=== PATIENT | female | born 1985 | race Caucasian/White ===

== ENCOUNTER 2016-08-07 06:30 | Emergency (ER) | payer OTHER ==
[~2016-08-07 06:30] MED LIST: CLONAZEPAM0.5 MG PO; DEPO-MEDROL40 MG/ML IM; IBUPROFEN400 MG PO; LATUDA120 MG PO; PRAZOSIN HCL2 MG PO; VALTREX1 GM PO; VENLAFAXINE HC100 MG PO
--- NOTE | 2016-08-07 08:41 | ED NURSING NOTES ---
Clinical Report - Nurses [facility] [address] [place] [address] 08/07/2016 6:31 Patient: CONSTANTINE ORDOÑEZ TRIAGE Triage time 07:13. Acuity: LEVEL 4. Chief Complaint: SORE THROAT and (Reports throat pain x 2 days. 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 Alert. No acute distress. SEPSIS SCREEN: Sepsis Screen: negative. Infection suspected/documented. --07:21 Kam Walden R.N. 07:12 08/07/16. BP: 113/62 (large adult cuff) taken on the left arm, via an automated monitor, while sitting. HR: 78 (normal rate). RR: 16 (regular, unlabored and normal). O2 saturation: 100% on room air. Temp: 97.8 F (oral). Pain level now: 12/16. --07:21 Kam Walden R.N. Weight: 115.6 kg stated. Height/Length: 63 inches Per Patient. BMI: 45.2. --07:14 Kam Walden R.N. Medications Latuda Oral (Tablet 120 mg) 1 tablet, q day. --07:14 Kam Walden R.N. PROzac Oral. --07:14 Kam Walden R.N. Minipress Oral. --07:14 Kam Walden R.N. Gabapentin Oral. --07:14 Kma Walden R.N. Depo-Provera Intramuscular. --07:16 Kam Walden R.N. Medication/allergy information source: the patient. --07:21 Kam Walden R.N. Allergies Sulfa Antibiotics. --07:14 Kam Walden R.N. History Arrived by private vehicle. Historian: patient. Unaccompanied. Primary physician (Dr. Munoz). Onset. (about 2 days ago). She has had a green nasal discharge, a sore throat, left ear pain and chills. No sinus pain. 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 Symptoms did not improve after treatment. (Throat lozanges). PAST MEDICAL HX: Last normal menstrual period- No period. Uses depo implants. Has not received seasonal influenza immunization. SOCIAL HX: Never smoker. No alcohol use or drug use. She has not traveled outside the [place] The patient was not exposed to MRSA. ABUSE ASSESSMENT: Abuse assessment: The patient was asked "Do you feel safe in your home?" and "Has anyone hurt you or threatened to hurt you?". No report of abuse. SELF HARM ASSESSMENT: A self harm assessment was performed. The patient answered "no" to the question "Do you have thoughts of harming or killing yourself?" and "Have you recently had thoughts about harming or killing others?". FALL RISK ASSESSMENT: Fall risk assessment completed. No fall risk identified. NUTRITIONAL RISK ASSESSMENT: The nutritional risk assessment revealed no deficiencies. LEARNING NEEDS ASSESSMENT: The learning needs assessment revealed no barriers. FUNCTIONAL ASSESSMENT: Functional assessment performed: wears glasses- this visual impairment is an ongoing problem. SKIN INTEGRITY ASSESSMENT: Skin integrity risk assessment completed. No skin integrity risk identified. --07: Kam Walden R.N. PROBLEMS: Hives. Anxiety. Otitis Media. Depression. Chronic Back Pain. PTSD. Cerebral Palsy. --07:15 Kam Walden R.N. ADDITIONAL SURGERIES: Dilatation & Curettage. Ileostomy. --07:15 Kam Walden R.N. Assessment GENERAL / NEURO / PSYCH: Alert. Oriented X 4. Appears in no acute distress. [place] Coma Scale: 15- eyes open spontaneously (4); best verbal response- oriented x 4 (5); best motor response- obeys commands (6). Patient appears calm and cooperative. RESPIRATORY: Respirations not labored. SKIN: Skin is warm and dry. --07:21 Kam Walden R.NLesia Interventions ID band on patient. Patient ID band checked for patient name and birthdate: patient confirmed. Throat swab obtained for rapid strep and culture; labeled in the presence of the patient and sent to lab. To waiting room. --07:21 Kam Walden R.N. DISPOSITION / DISCHARGE Departure time: 904Aug 07 2016. Condition at departure: improved and stable. No learning barriers present. Discharge instructions provided and reviewed with the patient. Reviewed medication(s) side effects, precautions and dosing information. Prescription(s) given to the patient. Patient verbalized understanding. Written instructions provided in Greek. The patient was discharged by the physician. She was discharged home. She left the Emergency Department ambulatory and via private vehicle. --18:08 Maggie Vasquez R.N. 18:05 08/07/16. BP: 105/55. HR: 82. RR: 18. O2 saturation: 99% on room air. Temp: 98.6 F. Pain level now: 10/16. --18:08 Maggie Vasquez R.N. Locked/Released at 08/07/2016 18:09 by Maggie Vasquez R.N.
--- NOTE | 2016-08-07 08:41 | ED CLINICAL REPORT ---
Clinical Report - Physicians/Mid Levels [facility] [address] [place] [place] [address] 08/07/2016 6:31 Patient: CONSTANTINE ORDOÑEZ Time Seen: 08:26; initial patient contact. Arrived- By private vehicle. Historian- patient. HISTORY OF PRESENT ILLNESS Chief Complaint: SORE THROAT. This started about 2 days ago and is still present and worsening. It was gradual in onset. Pain described as moderate. The patient has had a sore throat, nasal congestion, a nasal discharge and ear pain. No toothache, swollen jaw or face, jaw pain or facial pain. Similar symptoms previously: None. Recent medical care: Not recently seen/assessed. REVIEW OF SYSTEMS No fever, cough, difficulty breathing or enlarged lymph nodes. All systems otherwise negative, except as recorded above. PAST HISTORY Hives. Anxiety. Otitis Media. Depression. Chronic Back Pain. PTSD. Cerebral Palsy. ADDITIONAL SURGERIES: Dilatation & Curettage. Ileostomy. Medications: Depo-Provera Intramuscular. Gabapentin Oral. Minipress Oral. PROzac Oral. Latuda Oral (Tablet 120 mg) 1 tablet, q day. Allergies: Sulfa Antibiotics. SOCIAL HISTORY Never smoker. No alcohol use or drug use. ADDITIONAL NOTES The nursing notes have been reviewed with agreement regarding the chief complaint, PMH and patient medications and allergies. PHYSICAL EXAM Vital Signs: 08/07/2016 07:12 BP: 113/62. HR: 78. RR: 16. O2 saturation: 100%. Temp: 97.8 F. Pain level now: 6/10. Have been reviewed as normal. Appearance: Alert. No acute distress. Head: Normal external inspection. Eyes: Conjunctivae and eyelids normal. ENT: Abnormal ear exam. Left Ear: there is TM dullness present, a diffuse TM light reflex, bulging of the TM, loss of landmarks and moderate TM erythema. Moderate generalized pharyngeal erythema with right tonsillar swelling and left tonsillar swelling. No trismus present. Neck: No lymphadenopathy. CVS: Normal heart rate and rhythm. Heart sounds normal. Respiratory: No respiratory distress. Breath sounds normal. Skin: Normal skin color. No rash. Neuro: Oriented X 3. LABS, X-RAYS, AND EKG Laboratory Tests: Culture, Strep Screen: (ISAI: 08/07/2016 07:20) ( MsgRcvd 08/07/2016 07:35) Final results Test Result Flag Units (Reference) RAPID STREP SCREEN - THROAT DATE: 08/07/16 NEGATIVE SCREEN: RAPID STREP SCREEN NEGATIVE; CONFIRMATION TO FOLLOW . PROGRESS AND PROCEDURES Disposition: Discharged home in good condition. Condition: good. CLINICAL IMPRESSION Acute serous left otitis media. INSTRUCTIONS Do not work today. Your Current Medications: CONTINUE TAKING THE FOLLOWING MEDICATIONS: Depo-Provera Intramuscular. Gabapentin Oral. Latuda Oral : Tablet 120 mg, 1 tablet q day. Minipress Oral. PROzac Oral. Prescription Medications: Amoxicillin 500 mg capsules: take 1 orally every 8 hours for 7 days Flonase nasal spray: 2 sprays to each nostril daily. Dispense one (1) unit. No refills. Substitution is permissible Follow-up: Follow up with your doctor if not better. Call for an appointment. Screening today revealed the patient's blood pressure to be in the normal range. (Electronically signed by Brandon Coker Dr. 08/07/2016 10:57)
--- NOTE | 2016-08-07 08:41 | ED ORDER SUMMARY ---
..... Patient: CONSTANTINE ORDOÑEZ OrderSheet [facility] VisitID: [id number] [address] [place] [address] 30y, F Registration Date/Time: 08/07/2016 ORDER SHEET Weight: 115.6 kg (stated) Allergies: Sulfa Antibiotics GENERAL ORDERS: Culture, Strep Screen Urgent (07:22 08/07/2016 Sean Yang verbal order read back to [facility]) (7:28 [facility]) MEDICATION ORDERS: IV FLUIDS: ORDER SHEET NOTES: [Electronically signed by Brandon Coker Dr. (10:57 08/07/2016)] [Electronically signed by Maggie Vasquez R.N. (18:09 08/07/2016)] [Electronically locked/signed by Maggie Vasquez R.N. (18:09 08/07/2016)]
--- NOTE | 2016-08-07 08:41 | ED ORDER SUMMARY ---
..... Patient: CONSTANTINE ORDOÑEZ OrderSheet [facility] VisitID: [id number] [address] [place] [address] 30y, F Registration Date/Time: 08/07/2016 ORDER SHEET Weight: 115.6 kg (stated) Allergies: Sulfa Antibiotics GENERAL ORDERS: Culture, Strep Screen Urgent (07:22 08/07/2016 Sean Yang verbal order read back to [facility] Davila) (7:28 [facility]) MEDICATION ORDERS: IV FLUIDS: ORDER SHEET NOTES: [Electronically signed by Brandon Coker Dr. (10:57 08/07/2016)] [Electronically signed by Maggie Vasquez R.N. (18:09 08/07/2016)] [Electronically locked/signed by Maggie Vasquez R.N. (18:09 08/07/2016)]
--- NOTE | 2016-08-07 08:41 | ED CLINICAL REPORT ---
Clinical Report - Physicians/Mid Levels [facility] [address] [place] [address] 08/07/2016 6:31 Patient: CONSTANTINE ORDOÑEZ Time Seen: 08:26; initial patient contact. Arrived- By private vehicle. Historian- patient. HISTORY OF PRESENT ILLNESS Chief Complaint: SORE THROAT. This started about 2 days ago and is still present and worsening. It was gradual in onset. Pain described as moderate. The patient has had a sore throat, nasal congestion, a nasal discharge and ear pain. No toothache, swollen jaw or face, jaw pain or facial pain. Similar symptoms previously: None. Recent medical care: Not recently seen/assessed. REVIEW OF SYSTEMS No fever, cough, difficulty breathing or enlarged lymph nodes. All systems otherwise negative, except as recorded above. PAST HISTORY Hives. Anxiety. Otitis Media. Depression. Chronic Back Pain. PTSD. Cerebral Palsy. ADDITIONAL SURGERIES: Dilatation & Curettage. Ileostomy. Medications: Depo-Provera Intramuscular. Gabapentin Oral. Minipress Oral. PROzac Oral. Latuda Oral (Tablet 120 mg) 1 tablet, q day. Allergies: Sulfa Antibiotics. SOCIAL HISTORY Never smoker. No alcohol use or drug use. ADDITIONAL NOTES The nursing notes have been reviewed with agreement regarding the chief complaint, PMH and patient medications and allergies. PHYSICAL EXAM Vital Signs: 08/07/2016 07:12 BP: 113/62. HR: 78. RR: 16. O2 saturation: 100%. Temp: 97.8 F. Pain level now: 6/10. Have been reviewed as normal. Appearance: Alert. No acute distress. Head: Normal external inspection. Eyes: Conjunctivae and eyelids normal. ENT: Abnormal ear exam. Left Ear: there is TM dullness present, a diffuse TM light reflex, bulging of the TM, loss of landmarks and moderate TM erythema. Moderate generalized pharyngeal erythema with right tonsillar swelling and left tonsillar swelling. No trismus present. Neck: No lymphadenopathy. CVS: Normal heart rate and rhythm. Heart sounds normal. Respiratory: No respiratory distress. Breath sounds normal. Skin: Normal skin color. No rash. Neuro: Oriented X 3. LABS, X-RAYS, AND EKG Laboratory Tests: Culture, Strep Screen: (ISAI: 08/07/2016 07:20) ( MsgRcvd 08/07/2016 07:35) Final results Test Result Flag Units (Reference) RAPID STREP SCREEN - THROAT DATE: 08/07/16 NEGATIVE SCREEN: RAPID STREP SCREEN NEGATIVE; CONFIRMATION TO FOLLOW . PROGRESS AND PROCEDURES Disposition: Discharged home in good condition. Condition: good. CLINICAL IMPRESSION Acute serous left otitis media. INSTRUCTIONS Do not work today. Your Current Medications: CONTINUE TAKING THE FOLLOWING MEDICATIONS: Depo-Provera Intramuscular. Gabapentin Oral. Latuda Oral : Tablet 120 mg, 1 tablet q day. Minipress Oral. PROzac Oral. Prescription Medications: Amoxicillin 500 mg capsules: take 1 orally every 8 hours for 7 days Flonase nasal spray: 2 sprays to each nostril daily. Dispense one (1) unit. No refills. Substitution is permissible Follow-up: Follow up with your doctor if not better. Call for an appointment. Screening today revealed the patient's blood pressure to be in the normal range. (Electronically signed by Brandon Coker Dr. 08/07/2016 10:57)
--- NOTE | 2016-08-07 08:41 | ED NURSING NOTES ---
Clinical Report - Nurses [facility] [address] [place] [address] 08/07/2016 6:31 Patient: CONSTANTINE ORDOÑEZ TRIAGE Triage time 07:13. Acuity: LEVEL 4. Chief Complaint: SORE THROAT and (Reports throat pain x 2 days. 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 Alert. No acute distress. SEPSIS SCREEN: Sepsis Screen: negative. Infection suspected/documented. --07:21 Kam Walden R.N. 07:12 08/07/16. BP: 113/62 (large adult cuff) taken on the left arm, via an automated monitor, while sitting. HR: 78 (normal rate). RR: 16 (regular, unlabored and normal). O2 saturation: 100% on room air. Temp: 97.8 F (oral). Pain level now: 12/16. --07:21 Kam Walden R.N. Weight: 115.6 kg stated. Height/Length: 63 inches Per Patient. BMI: 45.2. --07:14 Kam Walden R.N. Medications Latuda Oral (Tablet 120 mg) 1 tablet, q day. --07:14 Kam Walden R.N. PROzac Oral. --07:14 Kam Walden R.N. Minipress Oral. --07:14 Kam Walden R.N. Gabapentin Oral. --07:14 Kam Walden R.N. Depo-Provera Intramuscular. --07:16 Kam Walden R.N. Medication/allergy information source: the patient. --07:21 Kam Walden R.N. Allergies Sulfa Antibiotics. --07:14 Kam Walden R.N. History Arrived by private vehicle. Historian: patient. Unaccompanied. Primary physician (Dr. Munoz). Onset. (about 2 days ago). She has had a green nasal discharge, a sore throat, left ear pain and chills. No sinus pain. 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 Symptoms did not improve after treatment. (Throat lozanges). PAST MEDICAL HX: Last normal menstrual period- No period. Uses depo implants. Has not received seasonal influenza immunization. SOCIAL HX: Never smoker. No alcohol use or drug use. She has not traveled outside the [place] The patient was not exposed to MRSA. ABUSE ASSESSMENT: Abuse assessment: The patient was asked "Do you feel safe in your home?" and "Has anyone hurt you or threatened to hurt you?". No report of abuse. SELF HARM ASSESSMENT: A self harm assessment was performed. The patient answered "no" to the question "Do you have thoughts of harming or killing yourself?" and "Have you recently had thoughts about harming or killing others?". FALL RISK ASSESSMENT: Fall risk assessment completed. No fall risk identified. NUTRITIONAL RISK ASSESSMENT: The nutritional risk assessment revealed no deficiencies. LEARNING NEEDS ASSESSMENT: The learning needs assessment revealed no barriers. FUNCTIONAL ASSESSMENT: Functional assessment performed: wears glasses- this visual impairment is an ongoing problem. SKIN INTEGRITY ASSESSMENT: Skin integrity risk assessment completed. No skin integrity risk identified. --07: Kam Walden R.N. PROBLEMS: Hives. Anxiety. Otitis Media. Depression. Chronic Back Pain. PTSD. Cerebral Palsy. --07:15 Kam Walden R.N. ADDITIONAL SURGERIES: Dilatation & Curettage. Ileostomy. --07:15 Kam Walden R.N. Assessment GENERAL / NEURO / PSYCH: Alert. Oriented X 4. Appears in no acute distress. [place] Coma Scale: 15- eyes open spontaneously (4); best verbal response- oriented x 4 (5); best motor response- obeys commands (6). Patient appears calm and cooperative. RESPIRATORY: Respirations not labored. SKIN: Skin is warm and dry. --07:21 Kam Walden R.NLesia Interventions ID band on patient. Patient ID band checked for patient name and birthdate: patient confirmed. Throat swab obtained for rapid strep and culture; labeled in the presence of the patient and sent to lab. To waiting room. --07:21 Kam Walden R.N. DISPOSITION / DISCHARGE Departure time: 904Aug 07 2016. Condition at departure: improved and stable. No learning barriers present. Discharge instructions provided and reviewed with the patient. Reviewed medication(s) side effects, precautions and dosing information. Prescription(s) given to the patient. Patient verbalized understanding. Written instructions provided in [place]. The patient was discharged by the physician. She was discharged home. She left the Emergency Department ambulatory and via private vehicle. --18:08 Maggie Vasquez R.N. 18:05 08/07/16. BP: 105/55. HR: 82. RR: 18. O2 saturation: 99% on room air. Temp: 98.6 F. Pain level now: 10/16. --18:08 Maggie Vasquez R.N. Locked/Released at 08/07/2016 18:09 by Maggie Vasquez R.N.
--- NOTE | 2016-08-07 18:09 | ED MED RECONCILIATION SUMMARY ---
Patient: CONSTANTINE ORDOÑEZ Medication Reconciliation Report [facility] VisitID: [id number] [address] [place] [address] 30y, F Registration Date/Time: 08/07/2016 Weight: 115.6 kg Height/Length: 63 in. BMI: 45.2 ALLERGIES: Sulfa Antibiotics The patient's Home Medications are listed below: CONTINUE TAKING THE FOLLOWING MEDICATIONS: Depo-Provera Intramuscular Gabapentin Oral Latuda Oral (120 mg) 1 tablet, q day Minipress Oral PROzac Oral The source(s) of the original Home Medication information: patient The following Medications were given to the patient in the Emergency Department: None. The following Medications were prescribed to the patient: Amoxicillin 500 mg capsules: take 1 orally every 8 hours for 7 days -- Brandon Coker Dr. Fl[place]reea nasal spray: 2 sprays to each nostril daily. Dispense one (1) unit. No refills. Substitution is permissible -- Brandon Coker Dr.
--- NOTE | 2016-08-07 18:09 | ED MAR SUMMARY ---
..... Medication Administration Record [facility] [address] [place], [place] [id number] Patient: CONSTANTINE ORDOÑEZ Visit ID: [id number] 30y, F Weight: 115.6 kg Height/Length: 63 in BMI: 45.2 ALLERGIES: Sulfa Antibiotics
--- NOTE | 2016-08-07 18:09 | ED DISCHARGE INSTRUCTIONS ---
Patient: CONSTANTINE ORDOÑEZ General Instructions [facility] VisitID: [id number] [place] [address] 30y, F Registration Date/Time: 08/07/2016 Acute serous left otitis media. INSTRUCTIONS Do not work today. Your Current Medications: CONTINUE TAKING THE FOLLOWING MEDICATIONS: Depo-Provera Intramuscular. Gabapentin Oral. Latuda Oral : Tablet 120 mg, 1 tablet q day. Minipress Oral. PROzac Oral. Prescription Medications: Amoxicillin 500 mg capsules: take 1 orally every 8 hours for 7 days Flonase nasal spray: 2 sprays to each nostril daily. Dispense one (1) unit. No refills. Substitution is permissible Follow-up: Follow up with your doctor if not better. Call for an appointment. Screening today revealed the patient's blood pressure to be in the normal range. ADDITIONAL INFORMATION Middle Ear Infection (Adult) You have an infection of the middle ear (the space behind the eardrum). It can occur as a result of the common cold. This is because congestion can block the internal passage (eustachian tube) that drains fluid from the middle ear. When the middle ear fills with fluid, bacteria can grow there and cause an infection. Oral antibiotics are used to treat this illness, not ear drops. Symptoms usually start to improve within 1-2 days of treatment. Home Care: Finish all of the antibiotic medicine prescribed, even though you may feel better after the first few days. You may use acetaminophen (Tylenol) or ibuprofen (Motrin, Advil) to control pain, unless something else was prescribed. [NOTE: If you have chronic liver or kidney disease or have ever had a stomach ulcer or GI bleeding, talk with your doctor before using these medicines.] (Do not give aspirin to anyone under 18 years of age who is ill with a fever. It may cause severe liver damage.) Follow Up with your doctor or this facility in two weeks if all symptoms have not cleared, or if hearing does not return to normal within one month. Get Prompt Medical Attention if any of the following occur: Ear pain gets worse or does not improve after three days of treatment Unusual drowsiness or confusion Neck pain, stiff neck or headache Fluid or blood draining from the ear canal Fever of 100.4F (38C) or higher after 3 days of antibiotics, or as directed by your healthcare provider Convulsion (seizure) Amoxicillin Trihydrate Oral tablet What is this medicine? AMOXICILLIN (a mox i VERNON in) is a penicillin antibiotic. It is used to treat certain kinds of bacterial infections. It will not work for colds, flu, or other viral infections. How should I use this medicine? Take this medicine by mouth with a glass of water. Follow the directions on your prescription label. You may take this medicine with food or on an empty stomach. Take your medicine at regular intervals. Do not take your medicine more often than directed. Take all of your medicine as directed even if you think your are better. Do not skip doses or stop your medicine early. Talk to your financial brokers regarding the use of this medicine in children. While this drug may be prescribed for selected conditions, precautions do apply. What side effects may I notice from receiving this medicine? Side effects that you should report to your doctor or health child care centre manager as soon as possible: allergic reactions like skin rash, itching or hives, swelling of the face, lips, or tongue breathing problems dark urine redness, blistering, peeling or loosening of the skin, including inside the mouth seizures severe or watery diarrhea trouble passing urine or change in the amount of urine unusual bleeding or bruising unusually weak or tired yellowing of the eyes or skin Side effects that usually do not require medical attention (report to your doctor or health child care centre manager if they continue or are bothersome): dizziness headache stomach upset trouble sleeping What may interact with this medicine? amiloride control pills chloramphenicol macrolides probenecid sulfonamides tetracyclines What if I miss a dose? If you miss a dose, take it as soon as you can. If it is almost time for your next dose, take only that dose. Do not take double or extra doses. Where should I keep my medicine? Keep out of the reach of children. Store between 68 and 77 degrees F (20 and 25 degrees C). Keep bottle closed tightly. Throw away any unused medicine after the expiration date. What should I tell my health care provider before I take this medicine? They need to know if you have any of these conditions: asthma kidney disease an unusual or allergic reaction to amoxicillin, other penicillins, cephalosporin antibiotics, other medicines, foods, dyes, or preservatives or trying to get breast-feeding What should I watch for while using this medicine? Tell your doctor or health child care centre manager if your symptoms do not improve in 2 or 3 days. Take all of the doses of your medicine as directed. Do not skip doses or stop your medicine early. If you are diabetic, you may get a false positive result for sugar in your urine with certain brands of urine tests. Check with your doctor. Do not treat diarrhea with [id number] products. Contact your doctor if you have diarrhea that lasts more than 2 days or if the diarrhea is severe and watery. Fluticasone Propionate Nasal spray, solution What is this medicine? FLUTICASONE (floo TIK a sone) is a corticosteroid. It helps decrease inflammation in your nose. This medicine is used to treat the symptoms of allergies like sneezing, itching, and runny or stuffy nose. How should I use this medicine? This medicine is for use in the nose. Follow the directions on your prescription label. This medicine works best if used regularly. Do not use more often than directed. Make sure that you are using your nasal spray correctly. Ask you doctor or health care provider if you have any questions. Talk to your financial brokers regarding the use of this medicine in children. While this drug may be prescribed for children as young as 4 years old for selected conditions, precautions do apply. What side effects may I notice from receiving this medicine? Side effects that you should report to your doctor or health child care centre manager as soon as possible: allergic reactions like skin rash, itching or hives, swelling of the face, lips, or tongue changes in vision flu-like symptoms white patches or sores in the mouth or nose Side effects that usually do not require medical attention (report to your doctor or health child care centre manager if they continue or are bothersome): burning or irritation inside the nose or throat cough headache nosebleed unusual taste or smell What may interact with this medicine? ketoconazole metyrapone some medicines for HIV vaccines What if I miss a dose? If you miss a dose, use it as soon as you remember. If it is almost time for your next dose, use only that dose and continue with your regular schedule. Do not use double or extra doses. Where should I keep my medicine? Keep out of the reach of children. Store at room temperature between 15 and 30 degrees C (59 and 86 degrees F). Throw away any unused medicine after the expiration date. What should I tell my health care provider before I take this medicine? They need to know if you have any of these conditions: infection, like tuberculosis, herpes, or fungal infection recent surgery on nose or sinuses taking corticosteroid by mouth an unusual or allergic reaction to fluticasone, steroids, other medicines, foods, dyes, or preservatives or trying to get breast-feeding What should I watch for while using this medicine? Visit your doctor or health child care centre manager for regular checks on your progress. Some symptoms may improve within 12 hours after starting use. Check with your doctor or health child care centre manager if there is no improvement in your condition after 3 weeks of use. Do not come in contact with people who have chickenpox or the measles while you are taking this medicine. If you do, call your doctor right away. You have been given the following additional information: Otitis Media, Abx Tx (Adult) Amoxicillin Trihydrate Oral tablet Fluticasone Propionate Nasal spray, solution Do not work today. (Electronically signed by Brandon Coker Dr. 08/07/2016 10:57)
--- NOTE | 2016-08-07 18:09 | ED DISCHARGE INSTRUCTIONS ---
Patient: CONSTANTINE ORDOÑEZ General Instructions [facility] VisitID: [id number] [place] [address] 30y, F Registration Date/Time: 08/07/2016 Acute serous left otitis media. INSTRUCTIONS Do not work today. Your Current Medications: CONTINUE TAKING THE FOLLOWING MEDICATIONS: Depo-Provera Intramuscular. Gabapentin Oral. Latuda Oral : Tablet 120 mg, 1 tablet q day. Minipress Oral. PROzac Oral. Prescription Medications: Amoxicillin 500 mg capsules: take 1 orally every 8 hours for 7 days Flonase nasal spray: 2 sprays to each nostril daily. Dispense one (1) unit. No refills. Substitution is permissible Follow-up: Follow up with your doctor if not better. Call for an appointment. Screening today revealed the patient's blood pressure to be in the normal range. ADDITIONAL INFORMATION Middle Ear Infection (Adult) You have an infection of the middle ear (the space behind the eardrum). It can occur as a result of the common cold. This is because congestion can block the internal passage (eustachian tube) that drains fluid from the middle ear. When the middle ear fills with fluid, bacteria can grow there and cause an infection. Oral antibiotics are used to treat this illness, not ear drops. Symptoms usually start to improve within 1-2 days of treatment. Home Care: Finish all of the antibiotic medicine prescribed, even though you may feel better after the first few days. You may use acetaminophen (Tylenol) or ibuprofen (Motrin, Advil) to control pain, unless something else was prescribed. [NOTE: If you have chronic liver or kidney disease or have ever had a stomach ulcer or GI bleeding, talk with your doctor before using these medicines.] (Do not give aspirin to anyone under 18 years of age who is ill with a fever. It may cause severe liver damage.) Follow Up with your doctor or this facility in two weeks if all symptoms have not cleared, or if hearing does not return to normal within one month. Get Prompt Medical Attention if any of the following occur: Ear pain gets worse or does not improve after three days of treatment Unusual drowsiness or confusion Neck pain, stiff neck or headache Fluid or blood draining from the ear canal Fever of 100.4F (38C) or higher after 3 days of antibiotics, or as directed by your healthcare provider Convulsion (seizure) Amoxicillin Trihydrate Oral tablet What is this medicine? AMOXICILLIN (a mox i VERNON in) is a penicillin antibiotic. It is used to treat certain kinds of bacterial infections. It will not work for colds, flu, or other viral infections. How should I use this medicine? Take this medicine by mouth with a glass of water. Follow the directions on your prescription label. You may take this medicine with food or on an empty stomach. Take your medicine at regular intervals. Do not take your medicine more often than directed. Take all of your medicine as directed even if you think your are better. Do not skip doses or stop your medicine early. Talk to your manager employment regarding the use of this medicine in children. While this drug may be prescribed for selected conditions, precautions do apply. What side effects may I notice from receiving this medicine? Side effects that you should report to your doctor or health live in caregiver as soon as possible: allergic reactions like skin rash, itching or hives, swelling of the face, lips, or tongue breathing problems dark urine redness, blistering, peeling or loosening of the skin, including inside the mouth seizures severe or watery diarrhea trouble passing urine or change in the amount of urine unusual bleeding or bruising unusually weak or tired yellowing of the eyes or skin Side effects that usually do not require medical attention (report to your doctor or health live in caregiver if they continue or are bothersome): dizziness headache stomach upset trouble sleeping What may interact with this medicine? amiloride control pills chloramphenicol macrolides probenecid sulfonamides tetracyclines What if I miss a dose? If you miss a dose, take it as soon as you can. If it is almost time for your next dose, take only that dose. Do not take double or extra doses. Where should I keep my medicine? Keep out of the reach of children. Store between 68 and 77 degrees F (20 and 25 degrees C). Keep bottle closed tightly. Throw away any unused medicine after the expiration date. What should I tell my health care provider before I take this medicine? They need to know if you have any of these conditions: asthma kidney disease an unusual or allergic reaction to amoxicillin, other penicillins, cephalosporin antibiotics, other medicines, foods, dyes, or preservatives or trying to get breast-feeding What should I watch for while using this medicine? Tell your doctor or health live in caregiver if your symptoms do not improve in 2 or 3 days. Take all of the doses of your medicine as directed. Do not skip doses or stop your medicine early. If you are diabetic, you may get a false positive result for sugar in your urine with certain brands of urine tests. Check with your doctor. Do not treat diarrhea with [id number] products. Contact your doctor if you have diarrhea that lasts more than 2 days or if the diarrhea is severe and watery. Fluticasone Propionate Nasal spray, solution What is this medicine? FLUTICASONE (floo TIK a sone) is a corticosteroid. It helps decrease inflammation in your nose. This medicine is used to treat the symptoms of allergies like sneezing, itching, and runny or stuffy nose. How should I use this medicine? This medicine is for use in the nose. Follow the directions on your prescription label. This medicine works best if used regularly. Do not use more often than directed. Make sure that you are using your nasal spray correctly. Ask you doctor or health care provider if you have any questions. Talk to your manager employment regarding the use of this medicine in children. While this drug may be prescribed for children as young as 4 years old for selected conditions, precautions do apply. What side effects may I notice from receiving this medicine? Side effects that you should report to your doctor or health live in caregiver as soon as possible: allergic reactions like skin rash, itching or hives, swelling of the face, lips, or tongue changes in vision flu-like symptoms white patches or sores in the mouth or nose Side effects that usually do not require medical attention (report to your doctor or health live in caregiver if they continue or are bothersome): burning or irritation inside the nose or throat cough headache nosebleed unusual taste or smell What may interact with this medicine? ketoconazole metyrapone some medicines for HIV vaccines What if I miss a dose? If you miss a dose, use it as soon as you remember. If it is almost time for your next dose, use only that dose and continue with your regular schedule. Do not use double or extra doses. Where should I keep my medicine? Keep out of the reach of children. Store at room temperature between 15 and 30 degrees C (59 and 86 degrees F). Throw away any unused medicine after the expiration date. What should I tell my health care provider before I take this medicine? They need to know if you have any of these conditions: infection, like tuberculosis, herpes, or fungal infection recent surgery on nose or sinuses taking corticosteroid by mouth an unusual or allergic reaction to fluticasone, steroids, other medicines, foods, dyes, or preservatives or trying to get breast-feeding What should I watch for while using this medicine? Visit your doctor or health live in caregiver for regular checks on your progress. Some symptoms may improve within 12 hours after starting use. Check with your doctor or health live in caregiver if there is no improvement in your condition after 3 weeks of use. Do not come in contact with people who have chickenpox or the measles while you are taking this medicine. If you do, call your doctor right away. You have been given the following additional information: Otitis Media, Abx Tx (Adult) Amoxicillin Trihydrate Oral tablet Fluticasone Propionate Nasal spray, solution Do not work today. (Electronically signed by Brandon Coker Dr. 08/07/2016 10:57)
--- NOTE | 2016-08-07 18:09 | ED MAR SUMMARY ---
..... Medication Administration Record [facility] [address] [place], [place] [id number] Patient: CONSTANTINE ORDOÑEZ Visit ID: [id number] 30y, F Weight: 115.6 kg Height/Length: 63 in BMI: 45.2 ALLERGIES: Sulfa Antibiotics
--- NOTE | 2016-08-07 18:09 | ED MED RECONCILIATION SUMMARY ---
Patient: CONSTANTINE ORDOÑEZ Medication Reconciliation Report [facility] VisitID: [id number] [address] [place] [address] 30y, F Registration Date/Time: 08/07/2016 Weight: 115.6 kg Height/Length: 63 in. BMI: 45.2 ALLERGIES: Sulfa Antibiotics The patient's Home Medications are listed below: CONTINUE TAKING THE FOLLOWING MEDICATIONS: Depo-Provera Intramuscular Gabapentin Oral Latuda Oral (120 mg) 1 tablet, q day Minipress Oral PROzac Oral The source(s) of the original Home Medication information: patient The following Medications were given to the patient in the Emergency Department: None. The following Medications were prescribed to the patient: Amoxicillin 500 mg capsules: take 1 orally every 8 hours for 7 days -- Brandon Coker Dr. Flonasandreea nasal spray: 2 sprays to each nostril daily. Dispense one (1) unit. No refills. Substitution is permissible -- Brandon Coker Dr.
== END 2016-08-07 09:05 | disposition home or self-care (01) ==
LOC: ED SRH 06:30
DX: H65.02 Acute serous otitis media, left ear (principal); Z88.2 Allergy status to sulfonamides
CPT/HCPCS: 90154; 90159